=== PATIENT | male | born 1985 | race Caucasian/White ===

== ENCOUNTER 2016-12-21 19:40 | Inpatient (IN) ==
[2016-12-21 22:50] LABS: MANUAL DIFF NEEDED? NO
[2016-12-21 23:00] LABS: BASO% 0.3 % (0.0-0.8); EOS# 0.22 X1000 (0.0-0.7); EOS% 2.2 % (0.0-10.0); HEMATOCRIT 46.6 % (42.0-52.0); HEMOGLOBIN 16.3 g/dL (14.0-18.0); IMM GRAN# 0.04 X1000 (0.0-0.04); IMM GRAN% 0.4 % (0.0-0.5); LYMPH# 1.68 X1000 (1.2-3.4); LYMPH% 16.9 % (20.5-51.1); MCH 29.3 PG (27-31); MCV 83.7 FL (81-99); MONO# 1.38 X1000 (0.11-0.59); MONO% 13.8 % (1.7-9.3); NEUT% 66.4 % (42.2-75.2); PLT 247 X1000 (130-400); RBC 5.57 XMIL (4.7-6.1)
[2016-12-21] MEDS ORDERED: VANCOMYCIN 2,150 MG in NS 500 ML IV ONE (23:00)
[2016-12-21] MEDS ORDERED: ROCEPHIN 2 GM in NS 50 ML IV ONE (23:01)
[2016-12-21] MEDS ORDERED: VANCOMYCIN IV PER PHARMACY MISC SCH (23:15)
[2016-12-21 23:25] LABS: AGAP 11; ALBUMIN 4.9 g/dL (3.5-5.0); ALKALINE PHOSPHATASE 89 U/L (32-122); BUN 12 mg/dL (8-22); CALCIUM 10.2 mg/dL (8.8-10.2); CHLORIDE 99 mmol/L (98-107); COSMO 271; GOT 24 U/L (10-34); GPT 51 U/L (10-44); POTASSIUM 4.5 mmol/L (3.5-5.1); SODIUM 136 mmol/L (136-145); TCO2 26 mmol/L (25-35); TOTAL BILIRUBIN 0.38 mg/dL (0.20-1.00); TOTAL PROTEIN 8.4 g/dL (6.3-8.3)
[2016-12-22] MEDS ORDERED: VIGAMOX 0.5% OPH SOLN RIGHT EYE SCH (00:30)
[2016-12-22] MEDS ORDERED: BENADRYL IV ONE (01:07)
[2016-12-22] MEDS ORDERED: ZOFRAN IV PRN (01:44)
[2016-12-22] MEDS ORDERED: VANCOMYCIN IV PER PHARMACY MISC SCH (01:44)
[2016-12-22] MEDS: NS 1,000 ML IV SCH ×3 (02:07→17:09)
[2016-12-22 04:10] LABS: URINE CULTURE NEEDED? NO; URINE MICRO REVIEW NEEDED? NO; URINE SOURCE CLEAN CATCH
[2016-12-22 04:16] LABS: BILIRUBIN URINE NEGATIVE (NEGATIVE); BLOOD URINE NEGATIVE (NEGATIVE); COLOR YELLOW; GLUCOSE URINE NEGATIVE (NEGATIVE); LEUKOCYTES URINE NEGATIVE (NEGATIVE); NITRITE URINE NEGATIVE (NEGATIVE); PH URINE 7.5; PROTEIN URINE NEGATIVE (NEGATIVE); SP GRAVITY URINE 1.019; TURBIDITY URINE CLEAR (CLEAR); UROBILINOGEN URINE NORMAL (NORMAL)
[2016-12-22 04:17] LABS: UR EPITHELIAL CELLS <10 /HPF (<10); URINE BACTERIA NEGATIVE /HPF; URINE RBC <10 /HPF (<10); URINE WBC <10 /HPF (<10)
[2016-12-22] MEDS: VANCOMYCIN 1,850 MG in NS 500 ML IV SCH (13:49)
[2016-12-22] MEDS: VIGAMOX 0.5% OPH SOLN RIGHT EYE SCH (17:09)
[2016-12-22] MEDS: ROCEPHIN 1 GM in NS 50 ML IV SCH (22:56)
[2016-12-23] MEDS: VANCOMYCIN 1,850 MG in NS 500 ML IV SCH ×2 (00:12→16:14)
[2016-12-23] MEDS: TYLENOL PO PRN ×2 (09:40→20:35)
[2016-12-23] MEDS: VIGAMOX 0.5% OPH SOLN RIGHT EYE SCH ×3 (09:41→16:57)
[2016-12-23] MEDS: NS 1,000 ML IV SCH ×2 (09:41)
[2016-12-23] MEDS: VANCOMYCIN 2,000 MG in NS 500 ML IV SCH (16:57)
[2016-12-23] MEDS: ROCEPHIN 1 GM in NS 50 ML IV SCH (22:13)
[2016-12-24] MEDS: VANCOMYCIN 2,000 MG in NS 500 ML IV SCH (04:15)
[2016-12-24] MEDS: NS 1,000 ML IV SCH ×2 (04:20→13:21)
[2016-12-24 12:13] VITALS: BP 119/54
[2016-12-24] MEDS: VIGAMOX 0.5% OPH SOLN RIGHT EYE SCH (13:21)
[2016-12-24] MEDS ORDERED: ULTRAM PO PRN (14:00)
[2016-12-24] MEDS ORDERED: AUGMENTIN PO SCH (21:00)
== END 2016-12-24 15:12 | disposition home or self-care (01) ==
LOC: ED 19:40 → SUATTDRO 12-22 00:54 → P.WC 12-22 00:54 → P.MEDSURG 12-22 01:04
PROVIDERS: ATTEND Internal Medicine